=== PATIENT | female | born 2000 | race Caucasian/White ===

== ENCOUNTER 2019-03-28 18:42 | Emergency (ER) | payer SELFPAY ==
[2019-03-28 19:21] VITALS: BP 134/74
--- NOTE | 2019-03-28 21:17 | ER Document Report ---
HPI - HPI Time Seen by Provider: 03/28/19 21:05 Pain Level: 4 Context: Patient is a 18-year-old female who presents to the emergency department with 2 specific complaints. 1 is that she has a tooth ache that she has had for the past 3 days. She denies any fever, body aches, or chills. Another complaint is that she wants to know whether or not she is . Patient states that she feels like she is . She states that she has cramping and feels nauseous, similar as to when she was before. She is 7 weeks . States that she is sexually active. - CONSTITUTIONAL Constitutional: DENIES: Fever, Chills - GASTROINTESTINAL Gastrointestinal: REPORTS: Abdominal Pain, Nausea - MUSCULOSKELETAL Musculoskeletal: DENIES: Extremity pain - DERM Skin Color: Normal Skin Problems: None Past Medical History - Social History Smoking Status: Current Every Day Smoker Frequency of alcohol use: None Drug Abuse: None Family History: Reviewed & Not Pertinent Patient has suicidal ideation: No Patient has homicidal ideation: No Vertical Provider Document - CONSTITUTIONAL Agree With Documented VS: Yes Exam Limitations: No Limitations General Appearance: No Apparent Distress - INFECTION CONTROL TRAVEL OUTSIDE OF THE [place] IN LAST 30 DAYS: No - HEENT HEENT: Atraumatic, Normocephalic, PERRLA. negative: Pharyngeal Exudate, Pharyngeal Tenderness, Pharyngeal Erythema, Tympanic Membrane Red, Tympanic Membrane Bulging Mouth Diagram: 1 - Dental carry noted - NECK Neck: Normal Inspection, Supple. negative: Lymphadenopathy-Left, Lym phadenopathy-Right - RESPIRATORY Respiratory: No Respiratory Distress - CARDIOVASCULAR Cardiovascular: Regular Rhythm Pulses: Normal: Radial - GI/ABDOMEN Gastrointestinal: Abdomen Soft, Abdomen Tender - Very mildly mid lower - MUSCULOSKELETAL/EXTREMETIES Musculoskeletal/Extremeties: FROM - NEURO Level of Consciousness: Awake - January, Alert, Appropriate - DERM Integumentary: Warm, Dry, No Rash Course - Re-evaluation Re-evalutation: 03/29/19 Patient's hCG is negative. Patient has multiple times of when needed she could possibly get after having a baby. I advised her that if she is worried about being that she should follow-up with the health department. She is in agreement with this plan. Patient's physical exam and history is most consistent with a infected tooth. Patient is able to swallow, no facial swelling noted, airway is patent, vital signs are normal. I do not suspect Maurice's angina, peritonsilar abscess, or airway obstruction. The patient will be started on oral antibiotics. I have given the patient education on their a ntibiotics. Patient was given instructions to follow-up with a dentist this week. Return precautions were given. Verbal discharge instructions were given. Patient verbalized understanding. Patient is stable for discharge. - Vital Signs Vital signs: Temp Pulse Resp BP Pulse Ox 98.5 F 82 18 134/74 H 100 03/28/19 19:19 03/28/19 19:19 03/28/19 19:19 03/28/19 19:19 03/28/19 19:19 Discharge - Discharge Clinical Impression: Negative test, Toothache Condition: Stable Disposition: HOME, SELF-CARE Instructions: Penicillin V K ([facility]), Toothache ([facility]) Additional Instructions: You have been seen in the emergency department for a toothache. You may take ibuprofen 600 mg and Tylenol 1000 mg every 6 hours as needed for the pain. You have also been prescribed antibiotics. Please take the antibiotics as prescribed, even if you start to feel better. If you develop a fever greater than 100.4 F, or have any symptoms that are worrisome to you, please return to the emergency department. Please follow-up with a dentist this week in regards to your visit. Follow-up with [facility] in regards to this visit. You are not . Prescriptions: Penicillin V Potassium [Penicillin Vk 500 mg Tablet] 500 mg PO TID #21 tablet Referrals: [facility] [Provider Group] - Follow up in 1 week
[2019-03-28] MEDS ORDERED: PENICILLIN V POTASSIUM 500 MG TABLET PO ONE (22:18)
== END 2019-03-28 23:03 | disposition home or self-care (01) ==
LOC: ER 18:42
DX: K08.9 Disorder of teeth and supporting structures, unspecified (principal); Z32.02 Encounter for pregnancy test, result negative; R10.9 Unspecified abdominal pain; R11.0 Nausea; F17.200 Nicotine dependence, unspecified, uncomplicated
CPT/HCPCS: 81025; 99283

== ENCOUNTER 2019-04-04 11:39 | Emergency (ER) | payer SELFPAY ==
[2019-04-04 11:43] VITALS: BP 127/75
--- NOTE | 2019-04-04 12:40 | ER Document Report ---
ED Oral Problem - General Chief Complaint: Toothache Stated Complaint: TOOTH ABSCESS Time Seen by Provider: 04/04/19 12:17 Notes: CHIEF COMPLAINT: Continued dental pain HPI: 18-year-old female presenting for evaluation of continued dental pain right lower third molar. Patient states she was seen a week ago placed on antibiotics but feels no better, states she has an appointment in 2 days with dental to have the tooth pulled but feels like the infection has not improved. Denies voice change. Denies fever ROS: See HPI - all other systems were reviewed and are otherwise negative Constitutional: no fever Eyes: no drainage, no blurred vision ENT: no runny nose, no sore throat, positive dental pain Integumentary: no rash Allergy: no hives MEDICATIONS: I agree with the patient medications as charted by the RN. ALLERGIES: I agree with the allergies as charted by the RN. PAST MEDICAL HISTORY/PAST SURGICAL HISTORY: Reviewed and agree as charted by RN. SOCIAL HISTORY: Reviewed and agree as charted by RN. FAMILY HISTORY: No significant familial comorbid conditions directly related to patient complaint EXAM: Reviewed vital signs as charted by RN. CONSTITUTIONAL: Alert and oriented and responds appropriately to questions. We ll-appearing; well-nourished, mild distress secondary to pain HEAD: Normocephalic; atraumatic EYES: PERRL; Conjunctivae clear, sclerae non-icteric ENT: normal nose; no rhinorrhea; moist mucous membranes; pharynx without lesions noted, no uvula edema or deviation, no tonsillar hypertrophy, phonation normal. No sublingual swelling. No trismus. There is dental caries noted to the right lower third molar with some inflammatory erythema adjacent to the tooth without induration or fluctuance. No facial swelling NECK: Supple without meningismus; non-tender; positive anterior cervical lymphadenopathy, no masses CARD: RRR; no murmurs, no clicks, no rubs, no gallops; symmetric distal pulses RESP: Normal chest excursion without splinting or tachypnea ABD/GI: non-distended BACK: The back appears normal EXT: Normal ROM in all joints; no cyanosis, no effusions, no edema SKIN: Normal color for age and race; warm; dry; good turgor NEURO: Moves all extremities equally; Motor and sensory function intact PSYCH: The patient's mood and manner are appropriate. Grooming and personal hygiene are appropriate. MDM: 18-year-old female with continuing dental pain from dental caries. Was placed on penicillin 1 week ago. Will change patient to a course of clindamycin she indicates she has an appointment in 2 days with dental TRAVEL OUTSIDE OF THE [place] IN LAST 30 DAYS: No - Related Data Allergies/Adverse Reactions: No Known Allergies Allergy (Unverified 03/28/19 20:53) Home Medications: antibiotics Past Medical History - Social History Smoking Status: Unknown if Ever Smoked Family History: Reviewed & Not Pertinent Patient has suicidal ideation: No Patient has homicidal ideation: No Physical Exam - Vital signs Vitals: Temp Pulse Resp BP Pulse Ox 97.8 F 88 18 127/75 H 99 04/04/19 11:40 04/04/19 11:40 04/04/19 11:40 04/04/19 11:40 04/04/19 11:40 Course - Vital Signs Vital signs: Temp Pulse Resp BP Pulse Ox 97.8 F 88 18 127/75 H 99 04/04/19 11:40 04/04/19 11:40 04/04/19 11:40 04/04/19 11:40 04/04/19 11:40 Discharge - Discharge Clinical Impression: Pain due to dental caries Condition: Stable Disposition: HOME, SELF-CARE Additional Instructions: Follow-up with your dentist for further evaluation and treatment keep your appointment on . Pain medications as prescribed no driving if taking narcotics for pain Prescriptions: Clindamycin HCl 300 mg PO TID #21 capsule Ibuprofen [Motrin 600 Mg Tablet] 600 mg PO Q6H #15 tablet Hydrocodone/Acetaminophen [Vivian 5-325 mg Tablet] 1 tab PO Q4H PRN #10 tablet PRN Reason:
== END 2019-04-04 12:30 | disposition home or self-care (01) ==
LOC: ER 11:39
DX: K08.89 Other specified disorders of teeth and supporting structures (principal); K02.9 Dental caries, unspecified
CPT/HCPCS: 99282

== ENCOUNTER 2019-05-22 12:12 | Emergency (ER) | payer MEDICAID ==
--- NOTE | 2019-05-22 12:30 | ER Document Report ---
HPI - HPI Time Seen by Provider: 05/22/19 12:16 Context: Patient presents to the [facility] for evaluation of upper respiratory symptoms for the past 3 days. Patient states that she has had fever, body aches, runny nose sore throat and shortness of breath. Patient denies any cough. Patient reports headache. Patient complains of generalized body aches even into the lower abdomen and upper thigh area. Patient states that she is only short of breath when she is taking a deep breath. Patient is a current smoker smokes 5 cigarettes a day. Patient also reports recent travel from [place] last week. Associated Symptoms: Body/muscle aches, Fever, Rhinnorhea, Shortness of breath, Sore throat Exacerbated by: Denies Relieved by: Denies Similar symptoms previously: No Recently seen / treated by doctor: No - ROS ROS below otherwise negative: Yes Systems Reviewed and Negative: Yes All other systems reviewed and negative - CONSTITUTIONAL Constitutional: REPORTS: Fever - EENT EENT: REPORTS: Sore Throat, Congestion - NEURO Neurology: REPORTS: Headache - CARDIOVASCULAR Cardiovascular: DENIES: Chest pain - RESPIRATORY Respiratory: DENIES: Coughing - GASTROINTESTINAL Gastrointestinal: REPORTS: Abdominal Pain. DENIES: Patient vomiting, Diarrhea - REPRODUCTIVE Reproductive: DENIES: : - DERM Skin Color: Normal Skin Problems: None Past Medical History - General Information source: Patient - Social History Smoking Status: Current Every Day Smoker Lives with: Family Family History: Reviewed & Not Pertinent Pulmonary Medical History: Reports: Hx Asthma Surgical Hx: Negative Vertical Provider Document - CONSTITUTIONAL Agree With Documented VS: Yes Exam Limitations: No Limitations General Appearance: WD/WN, No Apparent Distress - INFECTION CONTROL TRAVEL OUTSIDE OF THE [place] IN LAST 30 DAYS: No - HEENT HEENT: Atraumatic, Normocephalic, Pharyngeal Tenderness, Pharyngeal Erythema. negative: Pharyngeal Exudate Notes: Clear rhinorrhea - NECK Neck: Normal Inspection, Supple. negative: Lymphadenopathy-Left, Lymphadenopathy-Right - RESPIRATORY Respiratory: Breath Sounds Normal, No Respiratory Distress, Chest Non-Tender. negative: Rhonchi, Wheezing - CARDIOVASCULAR Cardiovascular: Regular Rate, Regular Rhythm, No Murmur. negative: Tachycardia - MUSCULOSKELETAL/EXTREMETIES Musculoskeletal/Extremeties: MAEW, FROM - NEURO Level of Consciousness: Awake, Alert, Appropriate Motor/Sensory: No Motor Deficit - DERM Integumentary: Warm, Dry, No Rash Course - Re-evaluation Re-evalutation: 05/22/19 12:30 The patient was evaluated during the global Covid 19 pandemic, and that diagnosis was suspected/considered upon their initial presentation. Their evaluation, treatment and testing was consistent with current guidelines for patients who present with complaints or symptoms that may be related to Covid 19. Patient presents with upper respiratory symptoms worrisome for possible Covid 19. Patient does not have emergency worrying symptoms such as difficulty breathing, shortness of breath, chest pain, pressure, confusion or cyanosis. Patient appears suitable for discharge as they are not of an advanced age, do not have any chronic medical conditions such as diabetes, CAD, immune deficiency, or chronic kidney disease. Patient's vital signs are stable and patient is nontoxic in appearance. Good return precautions have been discussed with patient, patient verbalized understanding and is agreeable with discharge plan of care at this time. 05/22/19 13:32 - Laboratory Laboratory results interpreted by me: 05/22/19 13:32 Labs- Entire Visit 05/22/19 05/22/19 12:40 12:42 Influenza A (Rapid) NEGATIVE Influenza B (Rapid) NEGATIVE Group A Strep Rapid NEGATIVE Discharge - Discharge Clinical Impression: covid 19 screening, Sore throat Upper respiratory infection Qualifiers: URI type: unspecified URI Qualified Code(s): J06.9 - Acute upper respiratory infection, unspecified Condition: Stable Disposition: HOME, SELF-CARE Instructions: Acetaminophen, Sore Throat ([facility]), Upper Respiratory Illness ([facility]) Additional Instructions: Return immediately for any new or worsening symptoms Followup with your primary care provider, call tomorrow to make a followup appointment We will call you with the results of your flu and strep testing. If you feel as though you are not able to manage your symptoms safely at home you should go to the emergency department or call 911 if symptoms become severe Prescriptions: Inhaler,Assist Device,Accesory [Optichamber] 1 each MC Q4 PRN #1 each PRN Reason: Albuterol Sulfate [Proair Hfa Inhalation Aerosol 8.5 gm Mdi] 2 puff IH Q4 PRN #1 mdi PRN Reason: Referrals: [facility] [Provider Group] - Follow up as needed
[2019-05-22 13:00] VITALS: BP 112/61
[2019-05-22 13:14] LABS: A TYPE INFLUENZA AG NEGATIVE (NEGATIVE); B INFLUENZA AG NEGATIVE (NEGATIVE)
== END 2019-05-22 17:00 | disposition home or self-care (01) ==
LOC: EDRDC 12:12
DX: J06.9 Acute upper respiratory infection, unspecified (principal); J02.9 Acute pharyngitis, unspecified; M79.10 Myalgia, unspecified site; R09.89 Other specified symptoms and signs involving the circulatory and respiratory systems; R06.02 Shortness of breath; R51 Headache; R10.9 Unspecified abdominal pain; R50.9 Fever, unspecified; F17.200 Nicotine dependence, unspecified, uncomplicated; Z20.828 Contact with and (suspected) exposure to other viral communicable diseases
CPT/HCPCS: 87070; 87635; 87804; 87880; 99211

== ENCOUNTER 2019-08-01 14:45 | Emergency (ER) | payer MEDICAID ==
[2019-08-01] MEDS ORDERED: CEFTRIAXONE INJ 1000 MG VIAL IM ONE (15:18)
[2019-08-01] MEDS ORDERED: NORMAL SALINE 1000 ML 1,000 ML IV PRN (15:18)
--- NOTE | 2019-08-01 15:18 | ER Document Report ---
ED Medical Screen (RME) - General Chief Complaint: Skin Problem Stated Complaint: SKIN ISSUE Time Seen by Provider: 08/01/19 15:15 Primary Care Provider: CHANDRAKANT GIORDANO [Primary Care Provider] - Follow up as needed Notes: This is a 19-year-old female presents to the emergency room today stating she has a red lump to the left antecubital area. She wants to assure me that this is not what it looks like although she does have multiple track vasquez. She also says she has chest pain shortness of breath. TRAVEL OUTSIDE OF THE [place] IN LAST 30 DAYS: No - Related Data Allergies/Adverse Reactions: No Known Allergies Allergy (Unverified 03/28/19 20:53) Past Medical History - Social History Frequency of alcohol use: None Drug Abuse: None Pulmonary Medical History: Reports: Hx Asthma Physical Exam - Vital signs Vitals: Temp Pulse Resp BP Pulse Ox 98.8 F 68 18 116/56 L 99 08/01/19 14:50 08/01/19 14:50 08/01/19 14:50 08/01/19 14:50 08/01/19 14:50 Course - Vital Signs Vital signs: Temp Pulse Resp BP Pulse Ox 98.8 F 68 18 116/56 L 99 08/01/19 14:50 08/01/19 14:50 08/01/19 14:50 08/01/19 14:50 08/01/19 14:50 Doctor's Discharge - Discharge Referrals: CHANDRAKANT GIORDANO [Primary Care Provider] - Follow up as needed
[2019-08-01 16:32] LABS: APPEARANCE,URINE SLIGHTLY-CLOUDY; BILIRUBIN,URINE NEGATIVE (NEGATIVE); COLOR,URINE YELLOW; GLUCOSE, URINE NEGATIVE (NEGATIVE); KETONES,URINE NEGATIVE (NEGATIVE); LEUKOCYTE ESTERASE,URINE SMALL (NEGATIVE); NITRITE,URINE NEGATIVE (NEGATIVE); PROTEIN,URINE NEGATIVE (NEGATIVE); URINE SPECIFIC GRAVITY 1.017; UROBILINOGEN,URINE NEGATIVE mg/dL (<2.0)
[2019-08-01] MEDS ORDERED: ACETAMINOPHEN 325 MG TABLET PO ONE (16:33)
[2019-08-01 16:37] LABS: URINE AMPHETAMINES SCREEN NEGATIVE; URINE BARBITURATES SCREEN NEGATIVE; URINE BENZODIAZEPINES SCREEN NEGATIVE; URINE COCAINE SCREEN NEGATIVE; URINE METHADONE SCREEN NEGATIVE; URINE PHENCYCLIDINE SCREEN NEGATIVE
[2019-08-01 16:39] LABS: URINE MARIJUANA (THC) SCREEN UNCONFIRMED POSITIVE
[2019-08-01 16:44] LABS: ABSOLUTE EOSINOPHILS # (AUTO) 0.1 10^3/uL (0.0-0.6); ABSOLUTE LYMPHOCYTES (AUTO) 2.8 10^3/uL (0.5-4.7); ABSOLUTE MONOCYTES (AUTO) 0.6 10^3/uL (0.1-1.4); ABSOLUTE NEUT (AUTO) 7.5 10^3/uL (1.7-8.2); BASOPHILS % (AUTO) 0.4 % (0-2); HEMOGLOBIN 13.3 g/dL (12.0-15.5); LYMPHOCYTES % (AUTO) 25.2 % (13-45); MEAN CORPUSCULAR HEMOGLOBIN 31.1 pg (27.0-33.4); MEAN CORPUSCULAR VOLUME 91 fl (80-97); MONOCYTES % (AUTO) 5.4 % (3-13); PLATELET COUNT 257 10^3/uL (150-450); RED BLOOD COUNT 4.26 10^6/uL (3.72-5.28); RED CELL DISTRIBUTION WIDTH 12.3 % (11.5-14.0); TOTAL CELLS COUNTED % (AUTO) 100 %
--- NOTE | 2019-08-01 16:55 | RADIOLOGY REPORT (SQ) ---
EXAM DESCRIPTION: CHEST SINGLE VIEW IMAGES COMPLETED DATE/TIME: 08/01/2019 4:44 pm REASON FOR STUDY: cp, back pain COMPARISON: None. EXAM PARAMETERS: NUMBER OF VIEWS: One view. TECHNIQUE: Single frontal radiographic view of the chest acquired. RADIATION DOSE: NA LIMITATIONS: None. FINDINGS: LUNGS AND PLEURA: No opacities, masses or pneumothorax. No pleural effusion. MEDIASTINUM AND HILAR STRUCTURES: No masses. Contour normal. HEART AND VASCULAR STRUCTURES: Heart normal in size. Normal vasculature. BONES: No acute findings. HARDWARE: None in the chest. OTHER: No other significant finding. IMPRESSION: NO ACUTE RADIOGRAPHIC FINDING IN THE CHEST. TECHNICAL DOCUMENTATION: JOB ID: [id number] 2010 [employer]- All Rights Reserved Reading location - IP/workstation name: [email or web address]
[2019-08-01 17:07] LABS: ALBUMIN 4.3 g/dL (3.5-5.0); ALKALINE PHOSPHATASE 53 U/L (38-126); ANION GAP 7 (5-19); ASPARTATE AMINO TRANSFERASE 20 U/L (14-36); BILIRUBIN,TOTAL 0.2 mg/dL (0.2-1.3); BLOOD UREA NITROGEN 10 mg/dL (7-20); CALCIUM 9.4 mg/dL (8.4-10.2); CARBON DIOXIDE 26 mmol/L (22-30); CHLORIDE 106 mmol/L (98-107); GLUCOSE 83 mg/dL (75-110); TOTAL PROTEIN 7.1 g/dL (6.3-8.2)
[2019-08-01] MEDS ORDERED: SULFAMETHOXAZOLE/TRIMETHOPRIM 800-160 MG TABLET PO ONE (18:19)
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
[2019-08-01] MEDS ORDERED: HYDROCODONE/ACETAMINOPHEN 5-325 MG TABLET PO ONE (19:10)
[2019-08-01 19:47] VITALS: BP 106/55
--- NOTE | 2019-08-02 13:21 | EKG REPORT ---
SEVERITY:- BORDERLINE ECG - SINUS RHYTHM WITH SINUS ARRHYTHMIA : Confirmed by: Sarai David 02-Aug-2019 13:20:26
== END 2019-08-01 19:47 | disposition home or self-care (01) ==
LOC: ER 14:45
DX: L02.414 Cutaneous abscess of left upper limb (principal); M54.9 Dorsalgia, unspecified; R07.9 Chest pain, unspecified; F17.200 Nicotine dependence, unspecified, uncomplicated
CPT/HCPCS: 93005; 99285; 96372; 96360; 36415; 87040; 87070; 87205; 84703; 85025; 87077; 80053; 81001; 84484; 80307; 71045; 93010; 10060; J3490 ×2; J0696; J7030; 87186